=== PATIENT | male | born 1985 | race African-American/Black ===

== ENCOUNTER 2016-10-04 23:07 | Emergency (ER) | payer OTHER ==
[~2016-10-04] VITALS: Ht 175.3 cm; Wt 82.0 kg
[~2016-10-04 23:07] MED LIST: CODE118S2
[2016-10-04 23:41] VITALS: BP 124/64
== END 2016-10-05 00:58 | disposition home or self-care (01) ==
LOC: ER 23:07
DX: J45.909 Unspecified asthma, uncomplicated (principal); F17.200 Nicotine dependence, unspecified, uncomplicated; F12.10 Cannabis abuse, uncomplicated
CPT/HCPCS: 99283

== ENCOUNTER 2016-10-19 18:57 | Emergency (ER) | payer OTHER ==
[~2016-10-19] VITALS: Ht 175.3 cm; Wt 86.0 kg
[2016-10-19 21:09] VITALS: BP 142/82
== END 2016-10-20 02:28 | disposition home or self-care (01) ==
LOC: ER 18:59
DX: R06.02 Shortness of breath (principal); J45.909 Unspecified asthma, uncomplicated; F12.10 Cannabis abuse, uncomplicated; F17.200 Nicotine dependence, unspecified, uncomplicated
CPT/HCPCS: 99283

== ENCOUNTER 2017-01-10 22:36 | Emergency (ER) | payer OTHER | END 2017-01-10 23:10 | disposition left against medical advice (07) | LOC: ER 23:04 | DX: R05 Cough (principal); Z53.21 Procedure and treatment not carried out due to patient leaving prior to being seen by health care provider ==

== ENCOUNTER 2017-02-24 20:42 | Emergency (ER) | payer SELFPAY ==
[~2017-02-24] VITALS: Ht 175.3 cm; Wt 85.0 kg
[2017-02-24 20:44] VITALS: BP 132/71
== END 2017-02-24 21:20 | disposition home or self-care (01) ==
LOC: ER 20:42
DX: Z76.0 Encounter for issue of repeat prescription (principal); J45.909 Unspecified asthma, uncomplicated; K21.9 Gastro-esophageal reflux disease without esophagitis; F17.210 Nicotine dependence, cigarettes, uncomplicated; F12.10 Cannabis abuse, uncomplicated
CPT/HCPCS: 99283

== ENCOUNTER 2017-09-12 04:04 | Emergency (ER) | payer SELFPAY ==
[~2017-09-12] VITALS: Ht 172.7 cm; Wt 86.0 kg
[2017-09-12 04:50] VITALS: BP 125/65
[2017-09-12] MEDS ORDERED: IPRATROPIUM BROMIDE (0.02%) 0.5MG/2.5ML NEB HHN STA (04:53)
[2017-09-12] MEDS ORDERED: ALBUTEROL (0.083%) 2.5MG/3ML NEB HHN STA (04:53)
[2017-09-12] MEDS ORDERED: DEXAMETHASONE 10 MG/ML VIAL IM ONE (05:00)
[2017-09-12] MEDS ORDERED: GUAIFENESIN 200MG/10ML SUGAR FREE UDC PO ONE (05:00)
[2017-09-12] MEDS ORDERED: AZITHROMYCIN 250 MG TABLET PO ONE (05:00)
== END 2017-09-12 05:23 | disposition home or self-care (01) ==
LOC: ER 04:04
DX: J20.9 Acute bronchitis, unspecified (principal); J45.909 Unspecified asthma, uncomplicated; F12.10 Cannabis abuse, uncomplicated; F17.290 Nicotine dependence, other tobacco product, uncomplicated
CPT/HCPCS: 93005; 99283; 99406; Z7610; 96372; J1100; J7611

== ENCOUNTER 2017-11-03 13:54 | Emergency (ER) | payer SELFPAY ==
[~2017-11-03] VITALS: Ht 167.6 cm; Wt 86.0 kg
[2017-11-03] MEDS ORDERED: PREDNISONE 20MG TABLET PO ONE (15:45)
[2017-11-03 17:01] VITALS: BP 120/64
== END 2017-11-03 18:39 | disposition home or self-care (01) ==
LOC: ER 14:41
DX: R07.89 Other chest pain (principal); J45.901 Unspecified asthma with (acute) exacerbation; J20.9 Acute bronchitis, unspecified; F17.210 Nicotine dependence, cigarettes, uncomplicated
CPT/HCPCS: 71045; 93005; 99284; J7512

== ENCOUNTER 2018-04-20 11:52 | Emergency (ER) | payer SELFPAY ==
[~2018-04-20] VITALS: Ht 177.8 cm; Wt 87.0 kg
[2018-04-20 14:45] VITALS: BP 124/62
== END 2018-04-20 14:45 | disposition home or self-care (01) ==
LOC: ER 12:53
DX: R07.81 Pleurodynia (principal); M79.10 Myalgia, unspecified site; J45.909 Unspecified asthma, uncomplicated; K21.9 Gastro-esophageal reflux disease without esophagitis; F12.10 Cannabis abuse, uncomplicated; F17.200 Nicotine dependence, unspecified, uncomplicated; Z79.899 Other long term (current) drug therapy
CPT/HCPCS: 71101; 76705; 99284

== ENCOUNTER 2018-06-30 22:15 | Emergency (ER) | payer SELFPAY ==
[~2018-06-30] VITALS: Ht 175.3 cm; Wt 87.4 kg
[2018-06-30 22:35] VITALS: BP 121/60
== END 2018-07-01 02:55 | disposition left against medical advice (07) ==
LOC: ER 22:15
DX: R07.9 Chest pain, unspecified (principal); Z53.21 Procedure and treatment not carried out due to patient leaving prior to being seen by health care provider

== ENCOUNTER 2019-01-28 21:49 | Emergency (ER) | payer SELFPAY ==
[~2019-01-28] VITALS: Ht 175.3 cm; Wt 87.0 kg
[2019-01-29 01:45] VITALS: BP 123/71
== END 2019-01-29 01:45 | disposition home or self-care (01) ==
LOC: ER 22:02
DX: J45.909 Unspecified asthma, uncomplicated (principal); Z76.0 Encounter for issue of repeat prescription; F12.90 Cannabis use, unspecified, uncomplicated
CPT/HCPCS: 99283

== ENCOUNTER 2019-05-18 10:47 | Emergency (ER) | payer SELFPAY ==
[~2019-05-18] VITALS: Ht 175.3 cm; Wt 86.0 kg
[2019-05-18 11:28] VITALS: BP 113/64
== END 2019-05-18 13:44 | disposition home or self-care (01) ==
LOC: ER 10:47
DX: J06.9 Acute upper respiratory infection, unspecified (principal); J45.909 Unspecified asthma, uncomplicated; Z76.0 Encounter for issue of repeat prescription; F12.90 Cannabis use, unspecified, uncomplicated
CPT/HCPCS: 71045; 93005; 99283

== ENCOUNTER 2019-07-16 21:58 | Emergency (ER) | payer SELFPAY ==
[~2019-07-16] VITALS: Ht 175.3 cm; Wt 86.0 kg
[2019-07-16 23:10] VITALS: BP 120/82
== END 2019-07-16 23:12 | disposition home or self-care (01) ==
LOC: ER 22:04
DX: J40 Bronchitis, not specified as acute or chronic (principal)
CPT/HCPCS: 87804; 99283